=== PATIENT | female | born 1995 | race Caucasian/White ===

== ENCOUNTER → 2017-01-03 | Outpatient (REF) | payer MEDICAID | LOC: M SFHCLERA 19:48 | PROVIDERS: ATTEND Physician Assistant | DX: N89.8 Other specified noninflammatory disorders of vagina (principal) ==

== ENCOUNTER → 2017-05-06 | Outpatient (CLI) | payer MEDICAID, OTHER ==
[2017-05-06 13:38] LABS: BASO % 0.4 % (0.0-1.0); EOS # 0.2 K/mm3 (0.0-0.50); EOS % 2.9 % (0.0-3.0); LARGE UNSTAINED CELL # 0.1 K/mm3 (0.0-0.4); LARGE UNSTAINED CELL % 1.4 % (0.0-4.0); LYMPH # 1.2 K/mm3 (1.5-6.5); LYMPH % 14.6 % (24.0-44.0); MEAN CORPUSCULAR HEMOGLOBIN 28.2 pg (27.0-33.0); MEAN CORPUSCULAR VOLUME 85.4 fl (80.0-96.0); MONO # 0.4 K/mm3 (0.0-0.8); MONO % 4.5 % (0.0-5.0); NEUTROPHILS # 5.8 K/mm3 (1.8-7.7); NEUTROPHILS % 76.2 % (36.0-66.0); PLATELET COUNT, AUTOMATED 260 k/mm3 (150-450); RED CELL DISTRIBUTION WIDTH 12.5 % (11.5-14.5); WHITE BLOOD COUNT 7.6 K/mm3 (4.0-10.0)
[2017-05-06 14:03] LABS: HBsAg Prenatal NEGATIVE (NEGATIVE)
== END ==
LOC: M SMT 08:45
PROVIDERS: ATTEND Obstetrics & Gynecology
DX: Z34.81 Encounter for supervision of other normal pregnancy, first trimester (principal)

== ENCOUNTER → 2017-05-19 | Outpatient (CLI) | payer OTHER | LOC: M OUTALCOH 12:48 | PROVIDERS: ATTEND Psychiatry & Neurology Psychiatry | DX: Z13.9 Encounter for screening, unspecified (principal); F10.10 Alcohol abuse, uncomplicated ==

== ENCOUNTER → 2017-07-13 | Outpatient (CLI) | payer OTHER ==
--- NOTE | 2017-07-13 10:23 | REP ---
Clinical: Anatomical evaluation. Comparison: None . Findings: Examination demonstrates a single live intrauterine in cephalic presentation. motion is identified by technologist. Placenta is noted anteriorly and grade zero without evidence for placenta previa or abruption. Amniotic fluid volume is normal. Cervix measures 3.5 cm in length and appears closed. No evidence for nuchal cord. Gestational age by LMP 22 weeks 1 day with ERROL 11/15/2017 . Gestational age by current measurements 21 weeks 5 days with ERROL 11/18/2017 . FHR equals 153 beats per minute. BPD 5.4 cm 22 weeks 4 days HC 20.0 cm 22 weeks 1 day AC 16.6 cm 21 weeks 4 days FL 3.7 cm 21 weeks 4 days HL 3.4 cm 21 weeks 5 days HC/AC ratio 1.20 Estimated weight 448 grams ( 35th percentile). Anatomical assessment demonstrates normal structures including cranium, choroid plexus, cavum, cerebellum/posterior fossa, facial features, lungs, four-chamber heart/ventricular outflow tracts, diaphragm, stomach, cord insertion/three-vessel cord, kidneys/bladder, spine, and extremities. Impression: Single live intrauterine in cephalic presentation demonstrating appropriate interval growth. Anatomical assessment is complete and normal. No gross abnormalities are identified. Signed by Arley Batres MD 07/13/2017 10:15 A
== END ==
LOC: M SMT 08:44
PROVIDERS: ATTEND Obstetrics & Gynecology
DX: Z34.82 Encounter for supervision of other normal pregnancy, second trimester (principal); Z3A.20 20 weeks gestation of pregnancy

== ENCOUNTER → 2017-07-28 | Outpatient (RCR) | payer OTHER | LOC: M OUTALCOH 06-30 15:39 | PROVIDERS: ATTEND Psychiatry & Neurology Psychiatry | DX: F10.10 Alcohol abuse, uncomplicated (principal) ==

== ENCOUNTER 2017-08-02 10:00 | Outpatient (RCR) | payer OTHER | END 2017-08-28 | LOC: M OUTALCOH 08-04 10:00 | DX: F10.10 Alcohol abuse, uncomplicated (principal) ==

== ENCOUNTER → 2017-08-30 | Outpatient (CLI) | payer OTHER ==
[2017-08-30 18:13] LABS: BASO % 0.5 % (0.0-1.0); EOS # 0.1 10^3/uL (0.0-0.50); HEMATOCRIT 36.2 % (36.0-47.0); HEMOGLOBIN 11.8 g/dl (12.0-16.0); IMMATURE GRANULOCYTE # 0.1 10^3/uL (0-0); IMMATURE GRANULOCYTE % 1.5 % (0-0); MEAN CORPUSCULAR HEMOGLOBIN 28.1 pg (27.0-33.0); MEAN CORPUSCULAR HGB CONC 32.6 g/dl (32.0-36.5); MEAN CORPUSCULAR VOLUME 86.2 fl (80.0-96.0); MONO # 0.6 10^3/uL (0.0-0.8); MONO % 7.5 % (0.0-5.0); NEUTROPHILS # 5.2 10^3/uL (1.8-7.7); NEUTROPHILS % 64.5 % (36.0-66.0); PLATELET COUNT, AUTOMATED 249 10^3/uL (150-450); RED CELL DISTRIBUTION WIDTH 13.2 % (11.5-14.5); WHITE BLOOD COUNT 8.1 10^3/uL (4.0-10.0)
[2017-08-30 18:36] LABS: GLUCOSE CHALLENGE TEST 1 HOUR 85 MG/DL (LESS THAN 140)
== END ==
LOC: M SMT 14:06
DX: Z34.83 Encounter for supervision of other normal pregnancy, third trimester (principal)
CPT/HCPCS: 82950

== ENCOUNTER 2017-08-31 14:19 | Outpatient (RCR) | payer OTHER | END 2017-09-28 | LOC: M OUTALCOH 14:19 | DX: F10.10 Alcohol abuse, uncomplicated (principal) ==

== ENCOUNTER → 2017-10-28 | Outpatient (REF) | payer OTHER | LOC: M LAB REF 13:09 | DX: Z34.83 Encounter for supervision of other normal pregnancy, third trimester (principal) ==

== ENCOUNTER 2017-11-20 01:11 | Inpatient (IN) | payer OTHER ==
[2017-11-20] MEDS: LACTATED RINGER'S 1000 ML IV (01:58)
[2017-11-20 02:28] LABS: HEMOGLOBIN 13.3 g/dl (12.0-16.0); MEAN CORPUSCULAR HEMOGLOBIN 28.4 pg (27.0-33.0); MEAN CORPUSCULAR HGB CONC 34.1 g/dl (32.0-36.5); MEAN CORPUSCULAR VOLUME 83.2 fl (80.0-96.0); PLATELET COUNT, AUTOMATED 220 10^3/uL (150-450); RED BLOOD COUNT 4.69 10^6/uL (4.00-5.40); RED CELL DISTRIBUTION WIDTH 14.1 % (11.5-14.5); WHITE BLOOD COUNT 11.4 10^3/uL (4.0-10.0)
[2017-11-20 02:50] LABS: ALT/SGPT 20 U/L (12-78); AST/SGOT 23 U/L (7-37); BILIRUBIN,TOTAL 0.7 MG/DL (0.2-1.0); CREATININE FOR GFR 0.71 MG/DL (0.55-1.30); GLOMERULAR FILTRATION RATE > 60.0 (>60); LDH LACTATE DEHYDROGENASE 212 U/L (84-246); URIC ACID 4.9 MG/DL (2.6-6.0)
[2017-11-20 02:51] LABS: AMPHETAMINES URINE REFLEX NEGATIVE (NEGATIVE); BARBITURATES URINE REFLEX NEGATIVE (NEGATIVE); BENZODIAZEPINES URINE REFLEX NEGATIVE (NEGATIVE); CANNABINOIDS URINE REFLEX NEGATIVE (NEGATIVE); COCAINE METABOLITE URINE REFLE NEGATIVE (NEGATIVE); METHADONE URINE REFLEX NEGATIVE (NEGATIVE); OPIATES URINE REFLEX NEGATIVE (NEGATIVE); PHENCYCLIDINE URINE REFLEX NEGATIVE (NEGATIVE)
[2017-11-20] MEDS ORDERED: FENTANYL 2MCG/ML ROPIVACAINE 0.2% IN 0.9% NACL 200ML IVBAG As Ordered (06:15)
[2017-11-20] MEDS ORDERED: EPIDURAL COMMENT XX (07:30)
[2017-11-20] MEDS ORDERED: NALOXONE INJ 0.4 MG/1 ML VIAL (J2310) IV ×3 (07:30→15:35)
[2017-11-20] MEDS ORDERED: EPIDURAL/PCA KEYS XX (07:30)
[2017-11-20] MEDS ORDERED: diphenhydrAMINE INJ 50MG/ML VIAL (J1200) IV (07:30)
[2017-11-20] MEDS ORDERED: LACTATED RINGER'S 1000 ML IV (07:30)
[2017-11-20] MEDS ORDERED: ONDANSETRON 4MG/2ML VIAL (J2405) IV ×3 (07:30→17:00)
[2017-11-20] MEDS ORDERED: FENTANYL/ROPIVACAINE/NACL BAG 200 ML EPIDURAL (07:30)
[2017-11-20] MEDS ORDERED: ePHEDrine SULFATE 25 MG/5 ML(5MG/ML) SYRINGE IV (07:30)
[2017-11-20] MEDS ORDERED: REFRIGERATOR IV KEYS XX (07:30)
[2017-11-20] MEDS: OXYTOCIN DRIP 30 UNITS in APPROPRIATE DILUENT 1 EA IV ×2 (08:03→22:07)
[2017-11-20] MEDS: LR 1,000 ML IV ×4 (09:04→17:00)
[2017-11-20 11:57] LABS: TOTAL PROTEIN,RANDOM URINE 46.6 MG/DL (0.0-12.0)
[2017-11-20 11:57] LABS: CREATININE,RANDOM URINE 54.7 MG/DL
[2017-11-20] MEDS: ACETAMINOPHEN 500 MG TAB PO (12:07)
[2017-11-20 13:01] LABS: HEMATOCRIT 38.3 % (36.0-47.0); HEMOGLOBIN 12.9 g/dl (12.0-16.0); MEAN CORPUSCULAR HEMOGLOBIN 28.2 pg (27.0-33.0); MEAN CORPUSCULAR HGB CONC 33.7 g/dl (32.0-36.5); MEAN CORPUSCULAR VOLUME 83.8 fl (80.0-96.0); PLATELET COUNT, AUTOMATED 181 10^3/uL (150-450); RED BLOOD COUNT 4.57 10^6/uL (4.00-5.40); WHITE BLOOD COUNT 16.1 10^3/uL (4.0-10.0)
[2017-11-20 13:20] LABS: ALT/SGPT 17 U/L (12-78); AST/SGOT 19 U/L (7-37); GLOMERULAR FILTRATION RATE > 60.0 (>60); LDH LACTATE DEHYDROGENASE 203 U/L (84-246); URIC ACID 4.6 MG/DL (2.6-6.0)
[2017-11-20] MEDS: AMPICILLIN SOD/SULBACTAM SOD 3 GM in D5W MINI-BAG PLUS 100 ML IV (13:28)
[2017-11-20] MEDS ORDERED: BICITRA 30ML SOLN UDC As Ordered (14:53)
[2017-11-20] MEDS ORDERED: ceFAZolin 2 GM/D5W 50 ML IV BAG (J0690 PER 500MG) As Ordered (14:53)
[2017-11-20] MEDS ORDERED: SODIUM BICARBONATE 8.4% INJ 50 ML SYRINGE As Ordered (14:57)
[2017-11-20] MEDS ORDERED: LIDOCAINE PRES-FREE 2% 10ML AMP As Ordered ×2 (14:57)
[2017-11-20] MEDS ORDERED: OXYTOCIN INJ 10 UNITS/ML VIAL (J2590) As Ordered ×2 (15:11)
[2017-11-20] MEDS: BICITRA 30ML SOLN UDC PO (15:15)
[2017-11-20] MEDS ORDERED: MORPHINE PRES-FREE INJ 10 MG/10 ML VIAL (J2274) As Ordered (15:27)
[2017-11-20] MEDS ORDERED: METOCLOPRAMIDE INJ 10MG/2ML VIAL (J2765) IV (15:35)
[2017-11-20] MEDS ORDERED: NALBUPHINE HCL 10 MG/ML AMP (J2300) IV (15:35)
[2017-11-20 15:38] LABS: CORD GAS ABE A -4.4; CORD GAS ABE V -3.8; CORD GAS HCO3 V 22.1 MEQ/L; CORD GAS O2 SAT A 16.1 %; CORD GAS O2 SAT V 31.6 %; CORD GAS PCO2 A 50.6 mmHg; CORD GAS PCO2 V 42.8 mmHg; CORD GAS PH A 7.275 UNITS; CORD GAS PO2 A 11.6 mmHg; CORD GAS PO2 V 16.6 mmHg; CORD GAS SBC A 18.7 MEQ/L; CORD GAS SBC V 19.6 MEQ/L; CORD GAS TCO2 A 24.5 MEQ/L; CORD GAS TCO2 V 23.4 MEQ/L
[2017-11-20] MEDS ORDERED: PERCOCET 5MG/325MG TAB PO ×2 (16:00→17:00)
[2017-11-20] MEDS: KETOROLAC 30 MG/ML VIAL (J1885) IV ×2 (16:43→23:04)
[2017-11-20] MEDS ORDERED: fentaNYL 100 MCG/2 ML INJECTION (J3010) IV (17:00)
[2017-11-20] MEDS ORDERED: MEPERIDINE INJ 25 MG/ML VIAL (J2175) IV (17:00)
[2017-11-20] MEDS: DOCUSATE SODIUM 100 MG CAP PO (20:03)
[2017-11-20] MEDS: PERCOCET 5MG/325MG TAB PO (21:33)
[2017-11-20] MEDS ORDERED: OXYTOCIN 30 UNITS IN 0.9% NaCl 500ML IV BAG (J2590) As Ordered (21:56)
[2017-11-20] MEDS: RHOGAM 300 MCG (1500 IU) INJ (J2790) IM (22:25)
[2017-11-20] MEDS: MEASLES,MUMPS,RUBELLA VACCINE INJ (MMR-II) (90707) SC (22:26)
[2017-11-21] MEDS: KETOROLAC 30 MG/ML VIAL (J1885) IV ×2 (05:16→14:23)
[2017-11-21 07:42] LABS: HEMATOCRIT 22.8 % (36.0-47.0); MEAN CORPUSCULAR HEMOGLOBIN 28.4 pg (27.0-33.0); MEAN CORPUSCULAR HGB CONC 33.8 g/dl (32.0-36.5); MEAN CORPUSCULAR VOLUME 84.1 fl (80.0-96.0); PLATELET COUNT, AUTOMATED 128 10^3/uL (150-450); RED BLOOD COUNT 2.71 10^6/uL (4.00-5.40); RED CELL DISTRIBUTION WIDTH 14.5 % (11.5-14.5); WHITE BLOOD COUNT 19.8 10^3/uL (4.0-10.0)
[2017-11-21 08:06] LABS: HEMOGLOBIN 7.7 g/dl (12.0-16.0)
[2017-11-21] MEDS: DOCUSATE SODIUM 100 MG CAP PO ×2 (09:17→19:14)
[2017-11-21] MEDS: PRENATAL VITAMINS CHEWABLE TABLET PO (09:17)
[2017-11-21] MEDS: PERCOCET 5MG/325MG TAB PO ×2 (14:40→20:02)
[2017-11-21] MEDS: ACETAMINOPHEN 500 MG TAB PO (18:24)
[2017-11-21] MEDS: IBUPROFEN 800 MG TAB PO (19:14)
[2017-11-22] MEDS: IBUPROFEN 800 MG TAB PO ×3 (02:24→19:24)
[2017-11-22] MEDS: DOCUSATE SODIUM 100 MG CAP PO ×2 (08:28→19:24)
[2017-11-22] MEDS: PRENATAL VITAMINS CHEWABLE TABLET PO (08:28)
[2017-11-22] MEDS: ACETAMINOPHEN 500 MG TAB PO (08:29)
[2017-11-22] MEDS: PERCOCET 5MG/325MG TAB PO ×2 (14:03→20:29)
[2017-11-23] MEDS: IBUPROFEN 800 MG TAB PO ×2 (02:42→11:50)
[2017-11-23] MEDS: PRENATAL VITAMINS CHEWABLE TABLET PO (08:47)
[2017-11-23] MEDS: DOCUSATE SODIUM 100 MG CAP PO (08:47)
[2017-11-23] MEDS: PERCOCET 5MG/325MG TAB PO (11:52)
== END 2017-11-23 13:00 | disposition home or self-care (01) | DRG 540 ==
LOC: M LDO 01:11 → M LDI 02:07 → M OBS 18:04
PROC: 10D00Z1 Extraction of Products of Conception, Low, Open Approach (ICD-10-PCS; principal; 2017-11-20 15:09)
DX: O14.94 Unspecified pre-eclampsia, complicating childbirth (principal); Z37.0 Single live birth; Z3A.39 39 weeks gestation of pregnancy; O62.0 Primary inadequate contractions; O41.1230 Chorioamnionitis, third trimester, not applicable or unspecified; O76 Abnormality in fetal heart rate and rhythm complicating labor and delivery; O69.82X0 Labor and delivery complicated by other cord entanglement, without compression, not applicable or unspecified

== ENCOUNTER → 2018-03-15 | Outpatient (REF) | payer OTHER, MEDICAID ==
[2018-03-16 00:15] LABS: CHLAMYDIA DNA AMPLIFICATION NEGATIVE (NEGATIVE); GC DNA AMPLIFICATION NEGATIVE (NEGATIVE)
== END ==
LOC: M SFHCLERA 14:38
DX: Z20.2 Contact with and (suspected) exposure to infections with a predominantly sexual mode of transmission (principal); R30.0 Dysuria
CPT/HCPCS: 87086

== ENCOUNTER → 2018-09-20 | Outpatient (REF) | payer OTHER, MEDICAID ==
[~2018-09-20] MED LIST: COLA100C5 PO; IBUP-1114 PO; OXYC1TAB23 PO; PRENTAB9 PO
== END ==
LOC: M SFHCLERA 15:17
PROVIDERS: ATTEND Nurse Practitioner Family
DX: J02.9 Acute pharyngitis, unspecified (principal)

== ENCOUNTER → 2018-09-26 | Outpatient (REF) | payer OTHER, MEDICAID ==
[2018-09-26 22:58] LABS: CHLAMYDIA DNA AMPLIFICATION POSITIVE (NEGATIVE); GC DNA AMPLIFICATION NEGATIVE (NEGATIVE)
== END ==
LOC: M SFHCLERA 19:40
PROVIDERS: ATTEND Nurse Practitioner Family
DX: Z20.2 Contact with and (suspected) exposure to infections with a predominantly sexual mode of transmission (principal)

== ENCOUNTER → 2018-10-17 | Outpatient (REF) | payer OTHER, MEDICAID ==
[2018-10-17 23:16] LABS: CHLAMYDIA DNA AMPLIFICATION NEGATIVE (NEGATIVE); GC DNA AMPLIFICATION NEGATIVE (NEGATIVE)
== END ==
LOC: M SFHCLERA 17:55
PROVIDERS: ATTEND Nurse Practitioner Family
DX: Z20.2 Contact with and (suspected) exposure to infections with a predominantly sexual mode of transmission (principal)

== ENCOUNTER 2018-12-17 18:50 | Emergency (ER) | payer MEDICAID, OTHER ==
[~2018-12-17] VITALS: Ht 160 cm; Wt 50.0 kg
[2018-12-17 20:32] VITALS: BP 120/84
[2018-12-17 21:14] LABS: INFLUENZA A AMPLIFICATION NEGATIVE (NEGATIVE); INFLUENZA B AMPLIFICATION NEGATIVE (NEGATIVE)
== END 2018-12-17 20:37 | disposition home or self-care (01) ==
LOC: M ED 18:50
DX: J02.9 Acute pharyngitis, unspecified (principal); R52 Pain, unspecified; B34.9 Viral infection, unspecified

== ENCOUNTER → 2019-04-09 | Outpatient (CLI) | payer OTHER ==
[2019-04-09 17:42] LABS: HEMATOCRIT 38.9 % (36.0-47.0); HEMOGLOBIN 12.2 g/dl (12.0-15.5); MEAN CORPUSCULAR HEMOGLOBIN 25.6 pg (27.0-33.0); MEAN CORPUSCULAR HGB CONC 31.4 g/dl (32.0-36.5); MEAN CORPUSCULAR VOLUME 81.6 fl (80.0-96.0); PLATELET COUNT, AUTOMATED 307 10^3/uL (150-450); RED BLOOD COUNT 4.77 10^6/uL (4.00-5.40); WHITE BLOOD COUNT 6.3 10^3/uL (4.0-10.0)
[2019-04-09 18:10] LABS: ALBUMIN 3.8 GM/DL (3.2-5.2); ALT/SGPT 21 U/L (12-78); BILIRUBIN,TOTAL 0.5 MG/DL (0.2-1.0); BLOOD UREA NITROGEN 13 MG/DL (7-18); CALCIUM LEVEL 8.9 MG/DL (8.5-10.1); CARBON DIOXIDE LEVEL 27 MEQ/L (21-32); CHLORIDE LEVEL 103 MEQ/L (98-107); CHOLESTEROL LEVEL 178 MG/DL (<200); CHOLESTEROL RISK RATIO 3.178 (<5); CREATININE FOR GFR 0.85 MG/DL (0.55-1.30); GLOMERULAR FILTRATION RATE > 60.0 (>60); GLUCOSE, FASTING 97 MG/DL (70-100); HDL CHOLESTEROL 56 MG/DL (>40); IRON (FE) 35 UG/DL (50-170); LDL CHOLESTEROL 102 MG/DL (<100); NON-HDL-C 122 MG/DL; PERCENT SATURATION 6.3 % (13.2-45.0); POTASSIUM SERUM 4.3 MEQ/L (3.5-5.1); SODIUM LEVEL 137 MEQ/L (136-145); THYROID STIMULATING HORMONE 0.498 uIU/ML (0.358-3.740); TOTAL 25(OH) VITAMIN D 63.7 NG/ML (30.0-100.0); TOTAL IRON BINDING CAPACITY 559 UG/DL (250-450); TOTAL PROTEIN 7.2 GM/DL (6.4-8.2); TRIGLYCERIDES LEVEL 100 MG/DL (<150)
[2019-04-09 18:41] LABS: HEMOGLOBIN A1c 5.1 %
== END ==
LOC: M LAB 16:23
PROVIDERS: ATTEND Family Medicine
DX: D64.9 Anemia, unspecified (principal); R53.83 Other fatigue; E03.9 Hypothyroidism, unspecified

== ENCOUNTER → 2020-04-11 | Outpatient (REF) | payer OTHER ==
[2020-05-17 12:26] LABS: CHLAMYDIA DNA AMPLIFICATION NEGATIVE (NEGATIVE); GC DNA AMPLIFICATION NEGATIVE (NEGATIVE)
== END ==
LOC: M SFHCLUC 10:19
PROVIDERS: ATTEND Physician Assistant
DX: N89.8 Other specified noninflammatory disorders of vagina (principal)

== ENCOUNTER 2021-10-17 11:52 | Emergency (ER) | payer OTHER ==
[~2021-10-17] VITALS: Ht 160 cm; Wt 54.5 kg
[2021-10-17 11:52] VITALS: BP 137/84
== END 2021-10-17 13:08 | disposition home or self-care (01) ==
LOC: M ED 11:52
DX: Z32.01 Encounter for pregnancy test, result positive (principal)

== ENCOUNTER 2021-11-13 16:45 | Emergency (ER) | payer OTHER ==
[~2021-11-13] VITALS: Ht 160 cm; Wt 55.3 kg
[2021-11-13 16:47] VITALS: BP 122/74
[2021-11-13 18:21] LABS: BASO % 0.5 % (0.0-1.0); EOS # 0.2 10^3/uL (0.0-0.5); EOS % 2.7 % (0.0-3.0); HEMATOCRIT 39.8 % (36.0-47.0); HEMOGLOBIN 13.3 g/dl (12.0-15.5); LYMPH # 2.1 10^3/uL (1.5-5.0); LYMPH % 33.1 % (24.0-44.0); MEAN CORPUSCULAR HGB CONC 33.4 g/dl (32.0-36.5); MEAN CORPUSCULAR VOLUME 86.7 fl (80.0-96.0); MONO # 0.6 10^3/uL (0.0-0.8); MONO % 8.9 % (2.0-8.0); NEUTROPHILS # 3.5 10^3/uL (1.5-8.5); NEUTROPHILS % 54.5 % (36.0-66.0); PLATELET COUNT, AUTOMATED 258 10^3/uL (150-450); RED BLOOD COUNT 4.59 10^6/uL (4.00-5.40); WHITE BLOOD COUNT 6.3 10^3/uL (4.0-10.0)
[2021-11-13 19:05] LABS: BLOOD UREA NITROGEN 11 MG/DL (7-18); CALCIUM LEVEL 8.9 MG/DL (8.5-10.1); CARBON DIOXIDE LEVEL 29 MEQ/L (21-32); CHLORIDE LEVEL 107 MEQ/L (98-107); CREATININE FOR GFR 0.67 MG/DL (0.55-1.30); GLOMERULAR FILTRATION RATE > 60.0 (>60); GLUCOSE, FASTING 109 MG/DL (70-100); HCG, SERUM QUANTITATIVE 7302 MIU/ML; POTASSIUM SERUM 4.1 MEQ/L (3.5-5.1); SODIUM LEVEL 139 MEQ/L (136-145)
[2021-11-13 21:01] LABS: GC DNA AMPLIFICATION NEGATIVE (NEGATIVE)
== END 2021-11-13 21:26 | disposition home or self-care (01) ==
LOC: M ED 16:45
DX: N89.9 Noninflammatory disorder of vagina, unspecified (principal); Z3A.01 Less than 8 weeks gestation of pregnancy

== ENCOUNTER → 2021-11-16 | Outpatient (CLI) | payer OTHER | LOC: M PLALAB 09:41 | PROVIDERS: ATTEND Advanced Practice Midwife | DX: O20.0 Threatened abortion (principal) ==

== ENCOUNTER → 2021-12-09 | Outpatient (CLI) | payer OTHER | LOC: M PLALAB 13:08 | PROVIDERS: ATTEND Obstetrics & Gynecology | DX: Z34.81 Encounter for supervision of other normal pregnancy, first trimester (principal) ==

== ENCOUNTER → 2021-12-22 | Outpatient (CLI) | payer OTHER ==
[2021-12-22 12:13] LABS: HEMATOCRIT 38.2 % (36.0-47.0); HEMOGLOBIN 13.7 g/dl (12.0-15.5); MEAN CORPUSCULAR HEMOGLOBIN 31.2 pg (27.0-33.0); MEAN CORPUSCULAR HGB CONC 35.9 g/dl (32.0-36.5); PLATELET COUNT, AUTOMATED 217 10^3/uL (150-450); RED BLOOD COUNT 4.39 10^6/uL (4.00-5.40)
[2021-12-22 12:51] LABS: ALBUMIN 3.9 GM/DL (3.2-5.2); ALT/SGPT 20 U/L (12-78); BILIRUBIN,TOTAL 1.1 MG/DL (0.2-1.0); BLOOD UREA NITROGEN 9 MG/DL (7-18); CALCIUM LEVEL 9.1 MG/DL (8.5-10.1); CARBON DIOXIDE LEVEL 24 MEQ/L (21-32); CHLORIDE LEVEL 108 MEQ/L (98-107); CREATININE FOR GFR 0.55 MG/DL (0.55-1.30); GLOMERULAR FILTRATION RATE > 60.0 (>60); GLUCOSE, FASTING 93 MG/DL (70-100); SODIUM LEVEL 139 MEQ/L (136-145); TOTAL PROTEIN 6.7 GM/DL (6.4-8.2)
[2021-12-22 13:34] LABS: GC DNA AMPLIFICATION NEGATIVE (NEGATIVE); HEPATITIS C VIRUS ABY INDEX 0.1 INDEX (<0.8); HIV 1&2 SCREEN CENTAUR NEGATIVE (NEGATIVE)
== END ==
LOC: M PLALAB 10:55
PROVIDERS: ATTEND Obstetrics & Gynecology
DX: Z36.89 Encounter for other specified antenatal screening (principal)

== ENCOUNTER → 2021-12-22 | Outpatient (CLI) | payer OTHER | LOC: M PLALAB 14:15 | PROVIDERS: ATTEND Family Medicine | DX: Z53.9 Procedure and treatment not carried out, unspecified reason (principal) ==

== ENCOUNTER 2022-03-20 16:35 | Emergency (ER) | payer OTHER ==
[~2022-03-20] VITALS: Ht 160 cm; Wt 53.6 kg
[2022-03-20 16:36] VITALS: BP 123/84
[2022-03-20 17:31] LABS: BASO # 0.1 10^3/uL (0.0-0.2); BASO % 0.7 % (0.0-1.0); EOS # 0.1 10^3/uL (0.0-0.5); EOS % 1.5 % (0.0-3.0); HEMATOCRIT 38.9 % (36.0-47.0); HEMOGLOBIN 12.6 g/dl (12.0-15.5); LYMPH # 1.7 10^3/uL (1.5-5.0); LYMPH % 23.3 % (24.0-44.0); MEAN CORPUSCULAR HEMOGLOBIN 28.3 pg (27.0-33.0); MEAN CORPUSCULAR HGB CONC 32.4 g/dl (32.0-36.5); MEAN CORPUSCULAR VOLUME 87.4 fl (80.0-96.0); MONO # 0.6 10^3/uL (0.0-0.8); MONO % 8.4 % (2.0-8.0); NEUTROPHILS # 4.9 10^3/uL (1.5-8.5); NEUTROPHILS % 65.7 % (36.0-66.0); PLATELET COUNT, AUTOMATED 320 10^3/uL (150-450); RED BLOOD COUNT 4.45 10^6/uL (4.00-5.40); WHITE BLOOD COUNT 7.4 10^3/uL (4.0-10.0)
[2022-03-20 17:52] LABS: ALBUMIN 3.5 GM/DL (3.2-5.2); ALT/SGPT 20 U/L (12-78); BILIRUBIN,DIRECT 0.2 MG/DL (0.0-0.2); BILIRUBIN,TOTAL 0.8 MG/DL (0.2-1.0); BLOOD UREA NITROGEN 12 MG/DL (7-18); CALCIUM LEVEL 8.6 MG/DL (8.5-10.1); CARBON DIOXIDE LEVEL 24 MEQ/L (21-32); CHLORIDE LEVEL 108 MEQ/L (98-107); CREATININE FOR GFR 0.92 MG/DL (0.55-1.30); GLOMERULAR FILTRATION RATE > 60.0 (>60); GLUCOSE, FASTING 120 MG/DL (70-100); LIPASE 90 U/L (73-393); SODIUM LEVEL 140 MEQ/L (136-145); TOTAL PROTEIN 7.2 GM/DL (6.4-8.2)
== END 2022-03-20 19:21 | disposition home or self-care (01) ==
LOC: M ED 16:35
DX: R10.11 Right upper quadrant pain (principal)

== ENCOUNTER → 2022-03-23 | Outpatient (CLI) | payer OTHER ==
[2022-03-23 16:14] LABS: HEMATOCRIT 39.7 % (36.0-47.0); HEMOGLOBIN 12.9 g/dl (12.0-15.5); MEAN CORPUSCULAR HEMOGLOBIN 28.5 pg (27.0-33.0); MEAN CORPUSCULAR HGB CONC 32.5 g/dl (32.0-36.5); MEAN CORPUSCULAR VOLUME 87.6 fl (80.0-96.0); PLATELET COUNT, AUTOMATED 329 10^3/uL (150-450); RED BLOOD COUNT 4.53 10^6/uL (4.00-5.40); WHITE BLOOD COUNT 6.9 10^3/uL (4.0-10.0)
[2022-03-23 18:26] LABS: ALBUMIN 3.5 GM/DL (3.2-5.2); ALT/SGPT 20 U/L (12-78); BILIRUBIN,TOTAL 0.4 MG/DL (0.2-1.0); BLOOD UREA NITROGEN 9 MG/DL (7-18); CALCIUM LEVEL 8.9 MG/DL (8.5-10.1); CARBON DIOXIDE LEVEL 27 MEQ/L (21-32); CHLORIDE LEVEL 108 MEQ/L (98-107); CHOLESTEROL LEVEL 162 MG/DL (<200); CREATININE FOR GFR 0.86 MG/DL (0.55-1.30); GLOMERULAR FILTRATION RATE > 60.0 (>60); GLUCOSE, FASTING 102 MG/DL (70-100); HDL CHOLESTEROL 40 MG/DL (>40); IRON (FE) 33 UG/DL (50-170); LDL CHOLESTEROL 77 MG/DL (<100); NON-HDL-C 122 MG/DL; PERCENT SATURATION 8.2 % (13.2-45.0); SODIUM LEVEL 139 MEQ/L (136-145); THYROID STIMULATING HORMONE 0.385 uIU/ML (0.358-3.740); TOTAL IRON BINDING CAPACITY 402 UG/DL (250-450); TOTAL PROTEIN 7.1 GM/DL (6.4-8.2); TRIGLYCERIDES LEVEL 223 MG/DL (<150)
[2022-03-23 18:50] LABS: POTASSIUM SERUM 4.2 MEQ/L (3.5-5.1); TOTAL 25(OH) VITAMIN D 49.5 NG/ML (30.0-100.0)
== END ==
LOC: M LAB 15:19
PROVIDERS: ATTEND Family Medicine
DX: D64.9 Anemia, unspecified (principal); R53.83 Other fatigue; E03.9 Hypothyroidism, unspecified

== ENCOUNTER 2022-06-16 12:38 | Emergency (ER) | payer OTHER ==
[~2022-06-16] VITALS: Ht 160 cm; Wt 53.6 kg
[2022-06-16 12:39] VITALS: BP 127/89
[2022-06-16] MEDS ORDERED: NORE1TAB73 (12:47)
== END 2022-06-16 13:46 | disposition home or self-care (01) ==
LOC: M ED 12:38
DX: Z32.02 Encounter for pregnancy test, result negative (principal)

== ENCOUNTER → 2022-08-13 | Outpatient (REF) | payer OTHER ==
[~2022-08-13] MED LIST changes: +NORE1TAB73
[2022-08-13 19:53] LABS: GC DNA AMPLIFICATION NEGATIVE (NEGATIVE)
== END ==
LOC: M LAB REF 17:11
PROVIDERS: ATTEND Physician Assistant
DX: Z20.2 Contact with and (suspected) exposure to infections with a predominantly sexual mode of transmission (principal)

== ENCOUNTER → 2022-09-24 | Outpatient (REF) | payer OTHER | LOC: M LAB REF 21:31 | PROVIDERS: ATTEND Physician Assistant Medical | DX: J02.9 Acute pharyngitis, unspecified (principal) ==

== ENCOUNTER → 2023-06-30 | Outpatient (CLI) | payer OTHER ==
[2023-06-30 09:41] LABS: HEMATOCRIT 42.5 % (36.0-47.0); HEMOGLOBIN 13.9 g/dl (12.0-15.5); MEAN CORPUSCULAR HEMOGLOBIN 29.3 pg (27.0-33.0); MEAN CORPUSCULAR HGB CONC 32.7 g/dl (32.0-36.5); MEAN CORPUSCULAR VOLUME 89.7 fl (80.0-96.0); PLATELET COUNT, AUTOMATED 269 10^3/uL (150-450); RED BLOOD COUNT 4.74 10^6/uL (4.00-5.40); WHITE BLOOD COUNT 4.8 10^3/uL (4.0-10.0)
[2023-06-30 09:50] LABS: HEMOGLOBIN A1c 4.7 % (4.0-6.0)
[2023-06-30 10:10] LABS: TOTAL IRON BINDING CAPACITY 386 UG/DL (250-425)
[2023-06-30 10:13] LABS: ALBUMIN 3.9 G/DL (3.2-5.2); ALKALINE PHOSPHATASE 49 U/L (46-116); ALT/SGPT 18 U/L (7.0-40); AST/SGOT 17 U/L (<34); BILIRUBIN,TOTAL 1.3 MG/DL (0.3-1.2); BLOOD UREA NITROGEN 9 MG/DL (9-23); CARBON DIOXIDE LEVEL 26 MMOL/L (20-31); CHLORIDE LEVEL 104 MMOL/L (98-107); CHOLESTEROL LEVEL 160 MG/DL (<200); CHOLESTEROL RISK RATIO 3.19 (<5); GLOMERULAR FILTRATION RATE > 60.0 (>60); GLUCOSE, FASTING 89 MG/DL (60-100); HDL CHOLESTEROL 50.1 MG/DL (>40); IRON (FE) 137 UG/DL (50-170); LDL CHOLESTEROL 83.7 MG/DL (<100); NON-HDL-C 109.9 MG/DL; PERCENT SATURATION 35.5 % (13.2-45.0); POTASSIUM SERUM 4.5 MMOL/L (3.5-5.1); SODIUM LEVEL 137 MMOL/L (136-145); TOTAL PROTEIN 7.2 G/DL (5.7-8.2); TRIGLYCERIDES LEVEL 131 MG/DL (<150)
[2023-06-30 10:20] LABS: THYROID STIMULATING HORMONE 0.747 uIU/ML (0.55-4.78)
[2023-06-30 10:21] LABS: FREE T4 0.99 NG/DL (0.89-1.76)
[2023-06-30 10:22] LABS: TOTAL 25(OH) VITAMIN D 54.1 NG/ML (20.0-100.0)
[2023-06-30 10:31] LABS: FREE T3 3.2 PG/ML (2.3-4.2)
== END ==
LOC: M LAB 08:45
PROVIDERS: ATTEND Family Medicine
DX: D64.9 Anemia, unspecified (principal); R53.83 Other fatigue; E03.9 Hypothyroidism, unspecified

== ENCOUNTER 2023-08-18 12:12 | Emergency (ER) | payer OTHER ==
[~2023-08-18] VITALS: Ht 160 cm; Wt 54.2 kg
[2023-08-18 14:24] VITALS: BP 122/84; TEMP 99; O2SAT 99
[2023-08-18 15:04] LABS: CHLAMYDIA DNA AMPLIFICATION NEGATIVE (NEGATIVE); GC DNA AMPLIFICATION NEGATIVE (NEGATIVE)
== END 2023-08-18 14:38 | disposition left against medical advice (07) ==
LOC: M ED 12:12
DX: Z53.21 Procedure and treatment not carried out due to patient leaving prior to being seen by health care provider (principal)

== ENCOUNTER 2023-08-21 16:33 | Emergency (ER) | payer OTHER ==
[2023-08-21 16:34] VITALS: BP 131/90; TEMP 97.6; O2SAT 98
[2023-08-21 16:53] LABS: URINE PREG TEST NEGATIVE (NEGATIVE)
[2023-08-21 19:31] LABS: CHLAMYDIA DNA AMPLIFICATION NEGATIVE (NEGATIVE); GC DNA AMPLIFICATION NEGATIVE (NEGATIVE)
== END 2023-08-21 18:24 | disposition home or self-care (01) ==
LOC: M ED 16:33
DX: N89.8 Other specified noninflammatory disorders of vagina (principal); R30.0 Dysuria; Z79.3 Long term (current) use of hormonal contraceptives

== ENCOUNTER → 2024-05-18 | Outpatient (CLI) | payer OTHER ==
[2024-05-18 11:02] LABS: HEMATOCRIT 39.6 % (36.0-47.0); MEAN CORPUSCULAR HEMOGLOBIN 29.5 pg (27.0-33.0); MEAN CORPUSCULAR HGB CONC 32.8 g/dl (32.0-36.5); MEAN CORPUSCULAR VOLUME 89.8 fl (80.0-96.0); PLATELET COUNT, AUTOMATED 259 10^3/uL (150-450); RED BLOOD COUNT 4.41 10^6/uL (4.00-5.40); WHITE BLOOD COUNT 5.3 10^3/uL (4.0-10.0)
[2024-05-18 11:25] LABS: HEMOGLOBIN A1c 4.9 % (4.0-6.0)
[2024-05-18 11:37] LABS: ALBUMIN 3.6 G/DL (3.2-5.2); ALKALINE PHOSPHATASE 59 U/L (46-116); ALT/SGPT 33 U/L (7.0-40); AST/SGOT 29 U/L (<34); BILIRUBIN,TOTAL 0.5 MG/DL (0.3-1.2); BLOOD UREA NITROGEN 14 MG/DL (9-23); CALCIUM LEVEL 9.3 MG/DL (8.5-10.1); CARBON DIOXIDE LEVEL 27 MMOL/L (20-31); CHLORIDE LEVEL 107 MMOL/L (98-107); CHOLESTEROL LEVEL 140 MG/DL (<200); CHOLESTEROL RISK RATIO 3.07 (<5); CREATININE FOR GFR 0.73 MG/DL (0.55-1.30); GLOMERULAR FILTRATION RATE > 60.0 (>60); GLUCOSE, FASTING 80 MG/DL (60-100); HDL CHOLESTEROL 45.5 MG/DL (>40); IRON (FE) 79 UG/DL (50-170); LDL CHOLESTEROL 68.1 MG/DL (<100); NON-HDL-C 94.5 MG/DL; POTASSIUM SERUM 4.3 MMOL/L (3.5-5.1); SODIUM LEVEL 136 MMOL/L (136-145); TOTAL IRON BINDING CAPACITY 377 UG/DL (250-425); TOTAL PROTEIN 6.7 G/DL (5.7-8.2); TRIGLYCERIDES LEVEL 132 MG/DL (<150)
[2024-05-18 11:39] LABS: THYROID STIMULATING HORMONE 0.473 uIU/ML (0.55-4.78); TOTAL 25(OH) VITAMIN D 56.8 NG/ML (20.0-100.0)
== END ==
LOC: M LAB 10:00
PROVIDERS: ATTEND Family Medicine
DX: D64.9 Anemia, unspecified (principal); E03.9 Hypothyroidism, unspecified; R53.83 Other fatigue

== ENCOUNTER 2024-11-19 08:35 | Emergency (ER) | payer OTHER ==
[~2024-11-19] VITALS: Ht 160 cm; Wt 53.7 kg
[2024-11-19 08:41] VITALS: BP 123/81; TEMP 98.4; O2SAT 100
== END 2024-11-19 08:47 | disposition left against medical advice (07) ==
LOC: M ED 08:35
DX: Z53.21 Procedure and treatment not carried out due to patient leaving prior to being seen by health care provider (principal)

== ENCOUNTER 2025-04-21 17:31 | Emergency (ER) | payer OTHER ==
[~2025-04-21] VITALS: Ht 157.5 cm; Wt 55.0 kg
[2025-04-21 19:52] LABS: KETONE, URINE AUTO RFX 1+ mg/dL (NEGATIVE); LEUKOCYTE ESTERASE UR AUTO RFX NEGATIVE (NEGATIVE); MUCUS, URINE RFX SMALL (NEGATIVE); NITRITE, URINE AUTO RFX NEGATIVE (NEGATIVE); RBC, URINE AUTO RFX 1 /HPF (0-3); SQUAM EPITHELIAL CELL UR AURFX 4 /HPF (0-6); WBC, URINE AUTO RFX 1 /HPF (0-3)
[2025-04-21] MEDS ORDERED: NITR100C3 PO (20:12)
[2025-04-21] MEDS: NITROFURANTOIN 100 MG CAP PO ONE (20:19)
[2025-04-21 20:21] VITALS: BP 111/75; TEMP 98.3; O2SAT 100
[2025-04-21 20:45] LABS: Trichomonas vaginalis (AMP) NOT DETECTED (NEGATIVE)
[2025-04-21 21:08] LABS: GC DNA AMPLIFICATION NEGATIVE (NEGATIVE)
== END 2025-04-21 20:26 | disposition home or self-care (01) ==
LOC: M ED 17:31
DX: O23.91 Unspecified genitourinary tract infection in pregnancy, first trimester (principal); Z3A.01 Less than 8 weeks gestation of pregnancy; Z87.59 Personal history of other complications of pregnancy, childbirth and the puerperium

== ENCOUNTER → 2025-05-22 | Outpatient (CLI) | payer OTHER ==
[~2025-05-22] MED LIST changes: +NITR100C3 PO
[2025-05-22 18:04] LABS: PLATELET COUNT, AUTOMATED 290 10^3/uL (150-450)
[2025-05-22 18:41] LABS: Trichomonas vaginalis (AMP) NOT DETECTED (NEGATIVE)
[2025-05-22 18:51] LABS: HIV 1&2 SCREEN NEGATIVE (NEGATIVE)
[2025-05-22 18:59] LABS: HEPATITIS C VIRUS ABY INDEX 0.05 INDEX (<0.8)
[2025-05-22 19:05] LABS: GC DNA AMPLIFICATION NEGATIVE (NEGATIVE)
== END ==
LOC: M LAB 14:38
PROVIDERS: ATTEND Obstetrics & Gynecology
DX: Z34.81 Encounter for supervision of other normal pregnancy, first trimester (principal)

== ENCOUNTER → 2025-06-06 | Outpatient (CLI) | payer OTHER ==
[2025-06-06 13:04] LABS: BASO # 0.0 10^3/uL (0.0-0.2); BASO % 0.3 % (0.0-1.0); EOS # 0.1 10^3/uL (0.0-0.5); EOS % 1.4 % (0.0-3.0); LYMPH # 1.4 10^3/uL (1.5-5.0); LYMPH % 19.4 % (24.0-44.0); MONO # 0.5 10^3/uL (0.0-0.8); MONO % 7.2 % (2.0-8.0); NEUTROPHILS # 5.1 10^3/uL (1.5-8.5); NEUTROPHILS % 71.3 % (36.0-66.0); PLATELET COUNT, AUTOMATED 276 10^3/uL (150-450)
[2025-06-06 13:30] LABS: ALT/SGPT 31 U/L (7.0-40); AST/SGOT 22 U/L (<34); CALCIUM LEVEL 8.8 MG/DL (8.5-10.1); CARBON DIOXIDE LEVEL 24 MMOL/L (20-31); CHLORIDE LEVEL 104 MMOL/L (98-107); CHOLESTEROL LEVEL 158 MG/DL (<200); CHOLESTEROL RISK RATIO 3.05 (<5); CREATININE FOR GFR 0.55 MG/DL (0.55-1.30); GLOMERULAR FILTRATION RATE > 90.0 (>60); LDL CHOLESTEROL 74.2 MG/DL (<100); NON-HDL-C 106.2 MG/DL; POTASSIUM SERUM 4.2 MMOL/L (3.5-5.1); SODIUM LEVEL 136 MMOL/L (136-145); TRIGLYCERIDES LEVEL 160 MG/DL (<150)
[2025-06-06 13:32] LABS: FREE T4 2.07 NG/DL (0.89-1.76)
[2025-06-06 13:42] LABS: ESTIMATED AVERAGE GLUCOSE 91.0 MG/DL (60-110)
== END ==
LOC: M LAB 12:12
DX: Z00.8 Encounter for other general examination (principal)

== ENCOUNTER → 2025-07-22 | Outpatient (CLI) | payer OTHER | LOC: M WHC 08:37 | PROVIDERS: ATTEND Obstetrics & Gynecology | DX: Z34.80 Encounter for supervision of other normal pregnancy, unspecified trimester (principal) ==